=== PATIENT | female | born 1985 | race Caucasian/White ===

== ENCOUNTER 2017-05-24 12:23 | Outpatient (CLI) | payer OTHER ==
[~2017-05-24] VITALS: Ht 165.1 cm; Wt 103.8 kg
[~2017-05-24 12:23] MED LIST: AMP500 PO; PREN1TAB49 PO
[2017-05-24 12:52] VITALS: Ht 165.1 cm; Wt 103.8 kg
[2017-05-24 13:06] VITALS: BP 127/77; PULSE 81; RESP 18
--- NOTE | 2017-05-24 13:07 | RADRPT ---
PROCEDURE: Biophysical profile CLINICAL INDICATION: distress, tachycardia. TECHNIQUE: Color and stanley-scale ultrasound images of an intrauterine gestation were obtained. COMPARISON: None FINDINGS: A single live intrauterine gestation is identified in cephalic position with an estimated hear t rate of 144 beats per minute. The placenta is located fundally and has a grade II. The cervix is obscured by head shadows. No evidence of abruption identified. JANINE is 16.9 cm. movement 2/2. tone 2/2. breathing movement 2/2. Qualitative AFV 2/2 Total biophysical profile 05/15 IMPRESSION: 05/15 biophysical profile. RPTAT: AA .Gerardo Newton MD, Date Time Electronically viewed and signed by .Gerardo Newton MD, MD on 05/24/2017 13:07 .P/
--- NOTE | 2017-05-24 14:17 | TRIAGE ---
OB Triage Datetime Report Generated by CPN: 05/24/2017 14:16 Datetime: 05/24/2017 13:47 Stage of : OB Triage Maternal Assessment Level of Consciousness: Fully Conscious Labor Evaluation Frequency: OCCASIONAL Monitor Mode: External Duration (sec)2399: 50-60 Quality: Mild Resting Tone [place]: Relaxed Heart Rate FHR Baseline Rate: 135 Monitor Mode: External US Variability: Moderate 6-25 bpm Accelerations: 15X15 Decelerations: None Category: Category I Pain Assessment Pain Scale: 0 Pain Goal: 3 Vaginal Exam Membrane Status: Intact Vaginal Bleeding: None Datetime: 05/24/2017 13:02 Monitor Mode: External Monitor Mode: External US Datetime: 05/24/2017 12:50 Assessment Type: Triage Maternal Assessment Level of Consciousness: Fully Conscious DTR's/Clonus: DTRs 2+; No Clonus Headache: Denies Blurred Vision: No Respiratory Effort: Unlabored; Regular Rhythm; Equal Expansion Breath Sounds, Left: Clear and Equal Breath Sounds, Right: Clear and Equal Nausea/Vomiting: Denies RUQ Epigastric Pain: Denies Lower Extremities Edema: None Degree: None Upper Extremities Edema: None Degree: None Facial Edema: None Fall Risk Assessment History of Falling: (0) No Secondary Diagnosis: (0) No Ambulatory Aid: (0) Bedrest/Nurse Assist IV Therapy: (0) No Gait: (0) Normal/Bedrest/Immobile Mental Status: (0) Oriented to Own Ability Fall Score: 0 Fall Risk Score Definition: No Risk: No action required Datetime: 05/24/2017 12:45 Time of Arrival: 05/24/2017 12:19 EGA: 34.1 Arrived By: Ambulatory Arrived From: Office Chief Complaint: PT SENT FROM OB OFFICE FOR TACHY Movement: Present Contractions: Denies/Absent Rupture of Membranes: Denies Vaginal Bleeding: None Vaginal Discharge: Denies Recent Sexual Intercouse: Denies Abdominal Trauma: Not Applicable Patient Complaints: None Time Provider Notified: 05/24/2017 13:40 Provider Notified: WAI Initial Plan: EFM/DIONICIO
--- NOTE | 2017-05-24 14:17 | CONS ---
Date/Time of Note Date/Time of Note DATE: 05/24/17 TIME: 14:12 Consultation Date/Type/Reason Admit Date/Time May 24, 2017 Reason for Consultation This patient is a 32 years old 4 para 2 1 who had 1 spontaneous vaginal delivery and another section in the past .her estimated date of confinement is July 04, 2017 which makes her 34 weeks and 1 day now During current regular examination in the clinic of Dr. Radford it was noted that the fetus has some tachycardia for this reason she was referred to triage clinic for further evaluation On examination she is a well-developed well-nourished patient in no distress . her chest is clear . abdomen is soft .we do not feel any contractions. no CVA tenderness Constitutional: chills, diaphoresis, disoriented, febrile, improved, no complaints, other, poor po, requiring IVF, requiring O2 Eyes: discharge, no complaints, other, pain, redness, visual change ENT: bleeding, congestion, discharge, dysphagia, no complaints, other, pain, sore throat Respiratory: cough, no complaints, other, pain, pleuritic pain, shortness of breath, sputum, wheezing Cardiovascular: chest pain, edema, lightheadedness, no complaints, orthopenea, other, palpitations, paroxysmal nocturnal dyspnea Gastrointestinal: blood, constipation, decreased appetite, diarrhea, flatus, nausea, no complaints, other (Pelvic examination was not performed due to the fact that she did not have any contractions), pain, passing stool, vomiting Genitourinary: No bleeding, No discharge, No dysuria, No flank pain, No hematuria, No no complaints, No other Musculoskeletal: other (Knee-jerk reflex are normal), No back pain, No bone/joint pain, No neck pain, No no complaints, No restricted range of motion, No swelling Skin: No bruising, No erythema, No laceration, No no complaints, No other, No pruritis, No rash, No skin lesions Neurologic: No confusion, No dizziness, No focal-weakness, No headache, No no complaints, No other, No seizure, No syncope Endocrine: No dry skin, No no complaints, No other, No polydypsia, No polyuria , No temp intolerance Additional Comments We also performed an ultrasound The report is a single live intrauterine gestation in cephalic position , heart rate 144 bpm ,placenta was located fundally grade 2, her amniotic fluid index was reported to 16.9 cm. biophysical profile 05/15 With these normal finding patient was reassured and was discharged home to be followed in the clinic Social History Smoking Status: Never smoker Exam/Review of Systems Vital Signs Vitals Vital Signs Date Time Temp Pulse Resp B/P Pulse Ox O2 Delivery O2 Flow Rate FiO2 05/24/17 13:06 98.6 81 18 127/77 Room Air BARTOLO AKBAR MD May 24, 2017 14:17
== END 2017-05-24 14:22 | disposition home or self-care (01) ==
LOC: OBT 12:23 → L-D 12:24 → OBT 14:22
PROVIDERS: ATTEND Obstetrics & Gynecology
DX: O26.893 Other specified pregnancy related conditions, third trimester (principal); Z3A.34 34 weeks gestation of pregnancy; R00.0 Tachycardia, unspecified; O34.219 Maternal care for unspecified type scar from previous cesarean delivery
CPT/HCPCS: 76818; G0463

== ENCOUNTER 2017-06-26 03:50 | Inpatient (IN) | payer OTHER ==
[~2017-06-26] VITALS: Ht 165.1 cm; Wt 108.6 kg
[~2017-06-26 03:50] MED LIST changes: -AMP500 PO
[2017-06-26 04:40] VITALS: Ht 165.1 cm; Wt 108.6 kg
[2017-06-26] MEDS ORDERED: CALC-516 PO (04:40)
[2017-06-26 04:41] VITALS: BP 131/82; PULSE 87; RESP 18
[2017-06-26] MEDS ORDERED: METHYLERGONOVINE 0.2 MG INJ IM PRN ×2 (06:30→17:30)
[2017-06-26] MEDS ORDERED: CARBOPROST 250 MCG INJ IM PRN ×2 (06:30→17:30)
[2017-06-26] MEDS ORDERED: MISOPROSTOL 200 MCG TAB PR PRN ×2 (06:30→17:30)
[2017-06-26] MEDS ORDERED: OXYTOCIN 30 UNITS/LR 500 ML IV PRN ×2 (06:30→17:30)
[2017-06-26] MEDS ORDERED: CEFAZOLIN 2 GM/50 ML (PMX) 50 ML IV SCH (06:30)
[2017-06-26 06:40] LABS: BASOPHILS % 0.3 % (0.0-2.0); EOSINOPHILS # 0.1 10^3/ul (0.0-0.5); EOSINOPHILS % 0.7 % (0.0-7.0); HEMATOCRIT 39.5 % (37.0-47.0); HEMOGLOBIN 13.3 g/dl (12.0-16.0); LYMPHOCYTES # 1.5 10^3/ul (0.8-2.9); LYMPHOCYTES % 16.9 % (15.0-51.0); MEAN CORPUSCULAR HEMOGLOBIN 29.4 pg (29.0-33.0); MEAN CORPUSCULAR HGB CONC 33.7 g/dl (32.0-37.0); MEAN CORPUSCULAR VOLUME 87.2 fl (82.0-101.0); MEAN PLATELET VOLUME 12.1 fl (7.4-10.4); MONOCYTE # 0.6 10^3/ul (0.3-0.9); MONOCYTES % 6.3 % (0.0-11.0); NEUTROPHIL # 6.7 10^3/ul (1.6-7.5); NEUTROPHILS % 75.3 % (39.0-77.0); PLATELET COUNT 171 10^3/UL (140-415); RED BLOOD COUNT 4.53 10^6/ul (4.20-5.40); RED CELL DISTRIBUTION WIDTH 14.4 % (11.5-14.5); WHITE BLOOD COUNT 8.9 10^3/ul (4.8-10.8)
[2017-06-26] MEDS: LACTATED RINGER'S 1,000 ML IV SCH ×3 (07:01→21:29)
[2017-06-26] MEDS ORDERED: TERBUTALINE 1 MG/ML INJ SC STA (07:15)
[2017-06-26 07:16] LABS: INR 0.95; PROTIME 12.7 Sec (12.2-14.2)
[2017-06-26 07:17] LABS: PARTIAL THROMBOPLASTIN TIME 32.1 Sec (25.0-35.0)
[2017-06-26] MEDS ORDERED: TERBUTALINE 1 ML ONE (07:19)
[2017-06-26] MEDS ORDERED: METOCLOPRAMIDE 10 MG INJ ONE (07:42)
[2017-06-26] MEDS ORDERED: CITRIC ACID/NA CITRATE 30 ML CUP ONE (07:43)
[2017-06-26] MEDS ORDERED: CEFAZOLIN 2 GM/50 ML (PMX) 50 ML IVPB ONE (07:43)
[2017-06-26] MEDS ORDERED: FAMOTIDINE 20 MG INJ ONE (07:44)
[2017-06-26] MEDS ORDERED: TERBUTALINE 1 MG/ML INJ SC PRN (07:45)
[2017-06-26] MEDS ORDERED: LACTATED RINGER'S 1,000 ML IV ONE (07:51)
[2017-06-26] MEDS ORDERED: FENTAnyl 50 MCG/ML VIAL ONE (07:58)
[2017-06-26] MEDS ORDERED: morphine SULFATE/PF (10 MG/10 ML) INJ ONE (07:58)
[2017-06-26] MEDS ORDERED: OXYTOCIN 30 UNITS/LR 500 ML IV ONE ×3 (07:58→10:35)
[2017-06-26] MEDS ORDERED: CITRIC ACID/NA CITRATE 30 ML CUP PO ONE (08:00)
[2017-06-26] MEDS ORDERED: METOCLOPRAMIDE 10 MG INJ IV ONE (08:00)
[2017-06-26] MEDS ORDERED: FAMOTIDINE 20 MG INJ IV ONE (08:00)
[2017-06-26] MEDS ORDERED: PHENYLephrine (100 MCG/ML) 5ML SYG ONE (08:11)
--- NOTE | 2017-06-26 08:11 | HP ---
Date/Time of Note Date/Time of Note DATE: 06/26/17 TIME: 08:05 OB - History Hx of Present Free Text/Dictation 31 y.o A1(sab) at 38w6d who had previous had scheculd in 2 days came in active labor. VE cx cm thin Hx o c-s in 2011 prepared or repeat section. Estimated Due Date: Jul 04, 2017 : 4 Para: 2 Spontaneous : 1 Therapeutic : 0 Care: Good Care Ultrasounds: Normal mid trimester US Obstetrical Complications: None Medical Complications: None Past Family/Social History * Past Medical, Surgical, Family and Obstetric Histories reviewed from chart. Blood Type: O+ Rubella: immune RPR/VDRL: Negative GBS Status: Negative HBsAG: Negative OB Admission Exam Vital Signs Vital Signs Vital Signs Date Time Temp Pulse Resp B/P Pulse Ox O2 Delivery O2 Flow Rate FiO2 06/26/17 04:41 99.0 87 18 131/82 Room Air Physical Exam HEENT: WNL Heart: Rhythm Normal Lungs: Clear, Equal Abdomen: WNL Extremities: Normal Reflexes: Normal Cervical Dilatation: 4cm Effacement: 75% Station: -2 Membranes: Intact Amniotic Fluid: Unevaluable Heart Rate: 130's Accelerations: Accelerations Present Decelerations: No Decelerations Varibility: Moderate Contractions on Admission: < 5 Minutes Apart Intensity: Moderate Last 72 hours Lab Results CBC & BMP 06/26/17 05:50 OB Assessment/Plan Reason for admission: active labor Other Assessment: IUP 38w6d with evious section Plan: Section ROWDY CARRENO MD Jun 26, 2017 08:11
[2017-06-26] MEDS ORDERED: ONDANSETRON 4 MG INJ ONE (08:27)
[2017-06-26] MEDS ORDERED: ZOLPIDEM 5 MG TAB PO PRN ×2 (08:30→17:30)
[2017-06-26] MEDS ORDERED: MEPERIDINE 25 MG INJ IV PRN (08:30)
[2017-06-26] MEDS ORDERED: NALOXONE (0.4 MG/ML) INJ IV PRN (08:30)
[2017-06-26] MEDS ORDERED: KETOROLAC 30 MG INJ IV PRN (08:30)
[2017-06-26] MEDS ORDERED: HYDROmorphONE 1 MG/ML SYG IV PRN ×2 (08:30)
[2017-06-26] MEDS ORDERED: FENTAnyl 50 MCG/ML VIAL IV PRN (08:30)
[2017-06-26] MEDS ORDERED: DIPHENHYDRAMINE 50 MG INJ IV PRN ×3 (08:30→17:30)
[2017-06-26] MEDS ORDERED: ONDANSETRON 4 MG INJ IV PRN ×3 (08:30→17:30)
[2017-06-26] MEDS ORDERED: HYDROmorphONE (0.2 MG/ML) 10ML SYG IV PRN (08:30)
[2017-06-26] MEDS ORDERED: PROCHLORPERAZINE 10 MG INJ IV PRN (08:30)
--- NOTE | 2017-06-26 09:09 | TRIAGE ---
OB Triage Datetime Report Generated by CPN: 06/26/2017 08:11 Datetime: 06/26/2017 07:29 Vaginal Exam Dilatation (cms): 4.0 Effacement (%): 90 Station: 0 Exam By: CKUNIYOSHI Vaginal Bleeding: Normal Show Cervix, Consistency: Soft Cervix, Position: Midposition Presentation 'A': Cephalic Datetime: 06/26/2017 06:45 Stage of : Labor Labor Evaluation Frequency: 2-6 Monitor Mode: External Duration (sec)2399: 50-60 Quality: Mild Pattern: Normal: <= 5 Contractions in 10 Minutes Resting Tone [place]: Relaxed Contraction Comments: abdomen soft on palpation Heart Rate FHR Baseline Rate: 125 Monitor Mode: External US Accelerations: 15X15 Decelerations: None Category: Category I Datetime: 06/26/2017 06:17 Stage of : Labor Assessment Type: Admission Assessment Vaginal Bleeding: None Maternal Assessment Level of Consciousness: Fully Conscious DTR's/Clonus: DTRs 2+; No Clonus Headache: Denies Blurred Vision: No Respiratory Effort: Unlabored; Regular Rhythm; Equal Expansion Breath Sounds, Left: Clear and Equal Breath Sounds, Right: Clear and Equal Nausea/Vomiting: Denies RUQ Epigastric Pain: Denies Lower Extremities Edema: None Degree: None Upper Extremities Edema: None Degree: None Facial Edema: None Fall Risk Assessment History of Falling: (0) No Secondary Diagnosis: (0) No Ambulatory Aid: (0) Bedrest/Nurse Assist IV Therapy: (20) Yes Gait: (0) Normal/Bedrest/Immobile Mental Status: (0) Oriented to Own Ability Fall Score: 20 Fall Risk Score Definition: No Risk: No action required Monitor Mode: External Pain Assessment Pain Scale: 6 Pain Presence: Intermittent Pain Type: Contraction Pain Location: Abdomen Datetime: 06/26/2017 06:00 Time of Arrival: 06/26/2017 06:00 EGA: 38.6 Arrived From: Other Unit in Hospital Datetime: 06/26/2017 05:00 Labor Evaluation Frequency: None noted Monitor Mode: External Resting Tone [place]: Relaxed Heart Rate FHR Baseline Rate: 120 Monitor Mode: External US Variability: Moderate 6-25 bpm Accelerations: 15X15 Decelerations: None Category: Category I Datetime: 06/26/2017 04:34 Time of Arrival: 06/26/2017 03:46 EGA: 38.6 Arrived By: Wheelchair Arrived From: Home Chief Complaint: UCs q5-10mins Previous C/S x1 Movement: Present Contractions: Regular Contractions: q5-10mins Rupture of Membranes: Denies Vaginal Bleeding: None Abdominal Trauma: Not Applicable Patient Complaints: Contractions Time Provider Notified: 06/26/2017 05:35 Provider Notified: Initial Plan: EFM x2 Datetime: 06/26/2017 04:23 Stage of : OB Triage Temperature Route: Oral Pain Assessment Pain Scale: 5 Pain Presence: Intermittent Pain Type: Cramping Pain Location: Abdomen Pain Relief Measures: Comfort Measures Datetime: 06/26/2017 04:21 Stage of : OB Triage Monitor Mode: External US Comments: EFM applied Datetime: 06/26/2017 04:19 Stage of : OB Triage Monitor Mode: External Contraction Comments: [place] applied Datetime: 05/24/2017 12:50 Fall Score: 0 Fall Risk Score Definition: No Risk: No action required Datetime: 05/24/2017 12:45 EGA: 34.1
[2017-06-26] MEDS ORDERED: KETOROLAC 30 MG INJ ONE (09:39)
[2017-06-26 15:55] VITALS: BP 130/60; PULSE 79; RESP 16
[2017-06-26] MEDS ORDERED: LANOLIN 7 GM TUBE TOP PRN (17:30)
[2017-06-26] MEDS: KETOROLAC 30 MG INJ IV PRN (18:42)
[2017-06-26 19:45] VITALS: BP_SYST 120; BP_SYST 126; BP_DIAS 75; BP_DIAS 78; PULSE 69; PULSE 78; RESP 18
[2017-06-26] MEDS: SENNA/DOCUSATE NA (8.6MG/50MG) TAB PO SCH (21:00)
[2017-06-27] VITALS: BP 118/68; PULSE 58; RESP 18
[2017-06-27] MEDS: KETOROLAC 30 MG INJ IV PRN (01:43)
[2017-06-27 04:00] VITALS: BP 114/69; PULSE 74; RESP 18
[2017-06-27 07:40] VITALS: BP 121/79; PULSE 79; RESP 18
[2017-06-27 09:55] LABS: BASOPHILS % 0.4 % (0.0-2.0); EOSINOPHILS # 0.1 10^3/ul (0.0-0.5); HEMATOCRIT 33.7 % (37.0-47.0); HEMOGLOBIN 11.4 g/dl (12.0-16.0); LYMPHOCYTES # 1.1 10^3/ul (0.8-2.9); LYMPHOCYTES % 12.8 % (15.0-51.0); MEAN CORPUSCULAR HEMOGLOBIN 29.9 pg (29.0-33.0); MEAN CORPUSCULAR HGB CONC 33.8 g/dl (32.0-37.0); MEAN CORPUSCULAR VOLUME 88.5 fl (82.0-101.0); MEAN PLATELET VOLUME 11.7 fl (7.4-10.4); MONOCYTE # 0.5 10^3/ul (0.3-0.9); MONOCYTES % 5.5 % (0.0-11.0); NEUTROPHIL # 6.6 10^3/ul (1.6-7.5); NEUTROPHILS % 79.9 % (39.0-77.0); PLATELET COUNT 141 10^3/UL (140-415); RED BLOOD COUNT 3.81 10^6/ul (4.20-5.40); RED CELL DISTRIBUTION WIDTH 14.6 % (11.5-14.5); WHITE BLOOD COUNT 8.3 10^3/ul (4.8-10.8)
[2017-06-27] MEDS: SENNA/DOCUSATE NA (8.6MG/50MG) TAB PO SCH ×2 (10:42→21:44)
[2017-06-27] MEDS: OXYCODONE/ACETAMINOPHEN (5/325) TAB PO PRN ×3 (10:42→23:58)
[2017-06-27] MEDS: IBUPROFEN 600 MG TAB PO SCH ×2 (12:50→18:05)
--- NOTE | 2017-06-27 13:25 | PN ---
Date/Time of Note Date/Time of Note DATE: 06/27/17 TIME: 13:23 OB Subjective Subjective Subjective passing flatus tolerating diet wee OB Objective Objective Objective vss afebrile abdomen soft wound dry calf nneg for tenderness lochia min OB Assessment/Plan Other Assessment: stable post c/s #! Other plan: as ordered ROWDY CARRENO MD Jun 27, 2017 13:25
--- NOTE | 2017-06-27 14:44 | OPR ---
Operative Report Planned Procedure Procedure date Jun 27, 2017 Procedure(s) repeat low transverse section Performed by see signature line Assisting provider: LEONIDAS LA Anesthesiologist: ANTONY CARNES MD Pre-procedure diagnosis had previous c/s came in active labor Anesthesia Type: spinal Procedure Description Under satisfactory []spinal anesthesia, the patient was prepped and draped and placed in a supine position, tilted to the left. Pfannenstiel incision was made , carried through the subcutaneous tissue. Bleeders brought under control with electrocautery. Fascia incised to the length of the incision. Rectus muscles from the fascia, divided midline. Peritoneum exposed, entered through a transverse incision. Exploration of abdomen revealed gravid uterus. Transverse incision was made in the lower segment of the uterus. layer by layer Amniotic sac ruptured. clear[] amniotic fluid noted. [] Nasal oropharyngeal suction was performed. The baby was handed to the team for immediate attention. The placenta was delivered manually Uterine cavity was cleaned with wet sponge and drainage established. Uterus closed in 2 layers using [#1 and 0 ch gut in continuous fashion. uterus was inserted to abdominal cavity Peritoneal cavity irrigated with warm saline. Sponge, needle and instrument count reported to be correct.Incisional site was cked for bleeder which was intact. Abdominal peritoneum closed with [00ch gut] continuously. Rectus muscle approximated with []00ch gut . Fascia closed with #1 vicryl and subcut tissue was irrigated with water and this layer was approximate with 00plain gut in continuously [], and skin closed with insorb EBL 600cc urine output 200cc Pt went to RR in stable condition Post-Procedure Post-procedure diagnosis delivered normal female infant Findings: Live Baby female[], Apgars 9] and []9, weight 7lb 3oz[], position [O A], [] presentation vertex[]cord.N/A Estimated blood loss: other (600) Specimen(s): no Grafts/Implants: no Grafts/Implants description none Complication(s): no Pt Condition post procedure: stable Disposition: PACU Physician Certification I, the undersigned physician, hereby certify that I have discussed the procedure described in this consent form with this patient (or the patient's legal sales representative advertising), including: * The risk and benefits of the procedure; * Any adverse reactions that may reasonably be expected to occur; * Any alternative efficacious methods of treatment which may be medically viable ; * The potential problems that may occur during recuperation; * Potential for blood transfusion and associated risks/benefits; and * Any research or economic interest I may have regarding this treatment. I further certify that the patient/legally responsible person was encouraged to ask question and that all questions were answered. ROWDY CARRENO MD Jun 27, 2017 14:44
[2017-06-27 20:00] VITALS: BP 121/71; PULSE 73; RESP 18
[2017-06-28] MEDS: OXYCODONE/ACETAMINOPHEN (5/325) TAB PO PRN ×4 (03:51→23:21)
[2017-06-28 04:00] VITALS: BP 129/82; PULSE 80; RESP 18
[2017-06-28] MEDS: IBUPROFEN 600 MG TAB PO SCH ×5 (06:37→23:44)
[2017-06-28 08:00] VITALS: BP 125/89; PULSE 71; RESP 20
[2017-06-28] MEDS: SENNA/DOCUSATE NA (8.6MG/50MG) TAB PO SCH ×2 (09:13→21:00)
[2017-06-28 12:41] VITALS: BP 122/84; PULSE 75; RESP 20
--- NOTE | 2017-06-28 14:12 | PN ---
Date/Time of Note Date/Time of Note DATE: 06/28/17 TIME: 14:10 OB Subjective Subjective Subjective no c/o had b.m OB Objective Objective Objective vss afebrile abdomen soft wound dry calf neg for tenderness lochia min OB Assessment/Plan Other Assessment: satisf poc/s#2 Other plan: d/s home in am ROWDY CARRENO MD Jun 28, 2017 14:12
[2017-06-28 16:00] VITALS: BP 124/82; PULSE 79; RESP 16
[2017-06-28 20:00] VITALS: BP 122/83; PULSE 72; RESP 18
[2017-06-28] MEDS ORDERED: INFLUENZA VIRUS VACCINE 0.5 ML SYG IM* ONE (21:30)
[2017-06-29 04:00] VITALS: BP 126/78; PULSE 77; RESP 18
[2017-06-29] MEDS: IBUPROFEN 600 MG TAB PO SCH (05:30)
--- NOTE | 2017-06-29 08:03 | PD.PPDC ---
STORAGE ENGINEER Discharge Instruction Diagnosis Final Diagnosis: s/p repeat section Condition Patient Condition: Stable Diet Diet: Resume Regular Diet Activity/Restrictions Activity: May Shower Restrictions: No Exercising No Lifting Minimize Stair-climbing No Sexual Activity Nothing in the Vagina No [place] No Tampons, douche Wound/Drain Care Instructions Wound/Drain Care Instructions: Wash with soap and water Keep clean and dry Follow-up Follow-up with Physician: 2, Week/Weeks Return to clinic for SILK [facility]OTTER Instructions: Fever greater than 101 Chills Worsening abdominal pain Excessive Vaginal Bleeding More than 2 pads per hour Unable to tolerate diet OB Instructions: Breast Tenderness Depression Blurried Vision Headache Surgical Instructions: Incisional Drainage Incisional Redness ROWDY CARRENO MD Jun 29, 2017 08:03
[2017-06-29 08:15] VITALS: BP 130/71; PULSE 76; RESP 18
--- NOTE | 2017-06-29 08:17 | DS ---
Date/Time of Note Date/Time of Note DATE: 06/29/17 TIME: 08:07 Obstetrical Discharge Record Final Diagnosis Final Diagnosis: Term delivered Section Section: Repeat Complications Augmentation: No Induction: No Rupture of Membranes: No Condition on Discharge Physical Assessment Last Vitals: vss afebile Voiding: Yes Bowel Movement: Yes Breast: Soft, non-tender Fundus: Firm Abdomen and Incision: wound dry Calf Tenderness: No Patient Condition: Stable ROWDY CARRENO MD Jun 29, 2017 08:17
[2017-06-29] MEDS ORDERED: DIPHTH/TET/ACEL PERTUSS (ADULT) 0.5 ML VIAL IM* ONE (09:00)
[2017-06-29] MEDS: SENNA/DOCUSATE NA (8.6MG/50MG) TAB PO SCH (10:53)
[2017-06-29] MEDS: OXYCODONE/ACETAMINOPHEN (5/325) TAB PO PRN (10:54)
[2017-06-29] MEDS ORDERED: INFLUENZA VIRUS VACCINE 0.5 ML SYG IM* ONE (11:00)
== END 2017-06-29 11:45 | disposition home or self-care (01) | DRG 766 ==
LOC: L-D 03:50 → OBT 03:50 → L-D 04:45 → OBT 05:35 → L-D 05:35 → PP1 15:49
PROVIDERS: ADMIT Obstetrics & Gynecology; ATTEND Obstetrics & Gynecology
PROC: 3E033VJ Introduction of Other Hormone into Peripheral Vein, Percutaneous Approach (ICD-10-PCS; 2017-06-26)
PROC: 10D00Z1 Extraction of Products of Conception, Low, Open Approach (ICD-10-PCS; principal; 2017-06-26 08:30)
DX: O34.211 Maternal care for low transverse scar from previous cesarean delivery (principal); N85.8 Other specified noninflammatory disorders of uterus; Z3A.38 38 weeks gestation of pregnancy; Z37.0 Single live birth
CPT/HCPCS: 36415; 85025; 85610; 85730; 86592; 86850; 86900; 86901; 87340; 90686; 90715; 99464; G0463; J0690; J1170; J1885; J2274; J2370; J2405; J2590; J2765; J3010; J3105; J7120

== ENCOUNTER 2018-12-16 02:27 | Emergency (ER) | payer SELFPAY ==
[~2018-12-16] VITALS: Ht 165.1 cm; Wt 111.6 kg
[~2018-12-16 02:27] MED LIST changes: +CALC-516 PO
[2018-12-16 02:39] VITALS: BP 136/65; PULSE 76; RESP 18; Ht 165.1 cm; Wt 111.6 kg
== END 2018-12-16 02:52 | disposition left against medical advice (07) ==
LOC: FTE 02:27
DX: Z53.21 Procedure and treatment not carried out due to patient leaving prior to being seen by health care provider (principal)